=== PATIENT | female | born 1970 | race Caucasian/White ===

== ENCOUNTER 2021-02-06 17:17 | Inpatient (IN) | payer OTHER ==
[~2021-02-06] VITALS: Ht 172.7 cm; Wt 77.2 kg
[2021-02-06 18:47] LABS: HEMOGLOBIN 15.7 gm/dl (12.3-15.3); RED BLOOD COUNT 5.14 M/UL (4.00-5.10); WHITE BLOOD COUNT 8.9 K/UL (4.5-11.0)
[2021-02-06 19:10] LABS: BUN/CREATININE RATIO 13 (0-10)
[2021-02-07 02:54] LABS: HEMOGLOBIN 15.1 gm/dl (12.3-15.3); RED BLOOD COUNT 5.07 M/UL (4.00-5.10); WHITE BLOOD COUNT 9.3 K/UL (4.5-11.0)
[2021-02-07] MEDS ORDERED: PRAVASTATIN SOD10 MG PO (03:09)
[2021-02-07] MEDS ORDERED: BUSPIRONE HCL7.5 MG PO (03:09)
[2021-02-07] MEDS ORDERED: VITAMIN C500 M4 PO (03:10)
[2021-02-07] MEDS ORDERED: VITAMIN D325 MCG PO (03:10)
[2021-02-07] MEDS ORDERED: ASPIRIN EC81 MG PO (03:10)
[2021-02-07] MEDS ORDERED: ZINC50 M1 PO (03:18)
[2021-02-07] MEDS ORDERED: CLARITIN10 M2 PO (03:19)
[2021-02-07] MEDS ORDERED: FLONASE 0.05% N16 GM (03:20)
[2021-02-07 05:38] LABS: BUN/CREATININE RATIO 15 (0-10)
[2021-02-07] MEDS ORDERED: CRESTOR10 MG PO (10:33)
[2021-02-07] MEDS ORDERED: BUSPIRONE HCL10 MG PO (10:33)
== END 2021-02-07 16:32 | disposition home or self-care (01) | DRG 311 ==
LOC: ER1 17:17 → PROG CARE 20:34 → CDU 20:34 → PROG CARE 02-07 01:42
PROVIDERS: Emergency Medicine; Internal Medicine; ADMIT Emergency Medicine
PROC: B24BZZZ Ultrasonography of Heart with Aorta (ICD-10-PCS; principal; 2021-02-07)
DX: I24.9 Acute ischemic heart disease, unspecified (principal); I47.1 Supraventricular tachycardia; Z20.822 Contact with and (suspected) exposure to COVID-19; F17.210 Nicotine dependence, cigarettes, uncomplicated; R03.0 Elevated blood-pressure reading, without diagnosis of hypertension; I08.3 Combined rheumatic disorders of mitral, aortic and tricuspid valves; E78.5 Hyperlipidemia, unspecified; I49.3 Ventricular premature depolarization; Z79.82 Long term (current) use of aspirin; Z86.79 Personal history of other diseases of the circulatory system; Z90.710 Acquired absence of both cervix and uterus; Z82.49 Family history of ischemic heart disease and other diseases of the circulatory system
CPT/HCPCS: ECHO; 70450; 71045; 78452; 80048; 80053; 80061; 82550; 82553; 83735; 83874; 84484; 85025; 85379; 85610; 85730; 93005; 93017; 93306; 96374; 99285; A9502; G0378; J1644; U0002